=== PATIENT | male | born 2005 | race African-American/Black ===

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

== ENCOUNTER 2025-06-20 21:58 | Emergency (ER) | payer OTHER ==
[~2025-06-20] VITALS: Ht 167.6 cm; Wt 82.2 kg
[2025-06-20 22:01] VITALS: O2SAT 100
[2025-06-21 01:27] VITALS: BP 114/65; PULSE 65; RESP 18; TEMP 36.7; O2SAT 96
== END 2025-06-21 01:30 | disposition home or self-care (01) ==
LOC: ER 21:58
DX: T43.611A Poisoning by caffeine, accidental (unintentional), initial encounter (principal); R00.2 Palpitations; Y92.89 Other specified places as the place of occurrence of the external cause
CPT/HCPCS: 71045; 93005; 99283